=== PATIENT | female | born 1985 | race Two or more races ===

== ENCOUNTER 2018-08-19 08:40 | Emergency (ER) | payer MEDICAID ==
[~2018-08-19] VITALS: Ht 167.6 cm; Wt 102.1 kg
--- NOTE | 2018-08-19 08:45 | NUR ---
BIBRA 89 from home c/o laceration to chin and facial pain s/p syncopal episode while taking a shower, YD=820. Patient a/ox4, no distress noted. breathing even and unlabored. 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
[2018-08-19] MEDS ORDERED: ONDANSETRON HCL/PF 4 MG/2 ML VIAL ONE ×2 (08:59→10:29)
[2018-08-19] MEDS ORDERED: ONDANSETRON HCL/PF - ER 4 MG/2 ML VIAL IV ONE ×2 (09:00→10:30)
[2018-08-19 09:04] LABS: BASOPHILS % (AUTO) 0.4 % (0.0-2.0); EOSINOPHILS % (AUTO) 1.5 % (0.0-6.0); HEMATOCRIT 32 % (33-45); HEMOGLOBIN 9.8 g/dL (11.5-14.8); LYMPHOCYTES # (AUTO) 2.2 /CMM (0.8-4.8); LYMPHOCYTES % (AUTO) 33.8 % (20.0-44.0); MEAN CORPUSCULAR HGB CONC 31 g/dl (31.0-36.0); MEAN CORPUSCULAR VOLUME 66 fL (82-100); MONOCYTES # (AUTO) 0.5 /CMM (0.1-1.30); MONOCYTES % (AUTO) 7.1 % (2.0-12.0); NEUTROPHILS # (AUTO) 3.8 /CMM (1.8-8.9); NEUTROPHILS % (AUTO) 57.2 % (43.0-81.0); PLATELET COUNT (AUTO) 324 /CMM (150-450); RED BLOOD CELL COUNT(AUTO) 4.82 MIL/uL (4.0-5.2); WHITE BLOOD COUNT (AUTO) 6.6 K/uL (4.3-11.0)
[2018-08-19 09:32] LABS: ALANINE AMINOTRANSFERASE 60 U/L (12-78); ALBUMIN 3.4 g/dL (3.4-5.0); ALKALINE PHOSPHATASE 134 U/L (46-116); ASPARTATE AMINOTRANSFERASE 48 U/L (15-37); BILIRUBIN,DIRECT 0.2 mg/dL (0.0-0.2); BILIRUBIN,TOTAL 0.9 mg/dL (0.2-1.0); CALCIUM, SERUM 8.6 mg/dL (8.5-10.1); CARBON DIOXIDE 26 mmol/L (21-32); CHLORIDE 103 mmol/L (98-107); CREATININE 0.6 mg/dL (0.6-1.3); GLUCOSE 141 mg/dL (74-106); LIPASE 79 U/L (73-393); SODIUM SERUM 137 mmol/L (136-145); UREA NITROGEN, BLOOD 9 mg/dL (7-18)
[2018-08-19 09:33] LABS: POTASSIUM 2.7 mmol/L (3.5-5.1)
[2018-08-19] MEDS ORDERED: POTASSIUM CL. PREMIX PERIPHER. 50 ML IV ONE (09:34)
[2018-08-19] MEDS ORDERED: POTASSIUM CL. PREMIX PERIPHER. 50 ML ONE (09:49)
[2018-08-19] MEDS ORDERED: POTASSIUM CHLORIDE 20 MEQ TAB.PRT.SR PO ONE ×2 (09:50→10:00)
[2018-08-19] MEDS ORDERED: IV NS 0.9% 1,000 ML BAG IV ONE (10:00)
[2018-08-19] MEDS ORDERED: LABETALOL HCL IV 100MG VIAL ONE (10:29)
[2018-08-19] MEDS ORDERED: LEVETIRACETAM (500MG) 500 MG in IV NS 0.9% 100 ML IV ONE (10:30)
[2018-08-19] MEDS ORDERED: LABETALOL 20 MG/4 ML VIAL IV ONE ×2 (10:30→11:00)
--- NOTE | 2018-08-19 10:30 | NUR ---
PATIENT A/OX3, VERBALLY RESPONSIVE, NO CHANGE IN LOC. PATIENT ABLE TO USE BEDPAN. ABLE TO MOVE ALL EXTREMITIES. NO DISTRESS NOTED. WILL CONTINUE TO MONITOR.
--- NOTE | 2018-08-19 10:48 | NUR ---
CALL BACK FROM [facility], [facility] ETA [id number], DR MANCILLA AWARE
[2018-08-19 11:03] VITALS: BP 170/102
--- NOTE | 2018-08-19 11:04 | NUR ---
CALL BACK FROM [facility], GOING TO ROOM 0625, REPORT TO BE CALLED AT [phone]
--- NOTE | 2018-08-19 11:10 | NUR ---
ATTEMPTED TO CALL REPORT, EMMA CALABRESE NOT AVAILABLE, WILL CALL BACK
--- NOTE | 2018-08-19 11:18 | NUR ---
REPORT GIVEN TO LICHA CALABRESE. [facility] CAME AND REPORT GIVEN TO KRANTHI CALABRESE. PATIENT A/OX3-4, VERBALLY RESPONSIVE, NO CHANGE IN LOC. ON ROOM AIR WITH SPO2 OF 98%. NO DISTRESS NOTED. PATIENT TRANSFERRED TO [facility] IN STABLE CONDITION.
== END 2018-08-19 11:23 | disposition short-term general hospital (02) ==
LOC: ER 08:43
DX: S02.5XXA Fracture of tooth (traumatic), initial encounter for closed fracture (principal); S01.81XA Laceration without foreign body of other part of head, initial encounter; S05.12XA Contusion of eyeball and orbital tissues, left eye, initial encounter; I60.9 Nontraumatic subarachnoid hemorrhage, unspecified; I10 Essential (primary) hypertension; R11.10 Vomiting, unspecified; E87.6 Hypokalemia; R51 Headache; Z98.890 Other specified postprocedural states; X58.XXXA Exposure to other specified factors, initial encounter; Y93.89 Activity, other specified; Y92.89 Other specified places as the place of occurrence of the external cause; Y99.8 Other external cause status
CPT/HCPCS: 36415; 70450; 70486; 72125; 80048; 80076; 83690; 84484; 84702; 85025; 85730; 93005; 96365; 96368; 96375; 96376; 99291; J1953; J2405 ×2; J3480; J3490 ×3; J7030 ×2; L0172

== ENCOUNTER 2018-08-26 10:51 | Emergency (ER) | payer MEDICAID ==
[~2018-08-26] VITALS: Ht 165.1 cm; Wt 96.6 kg
[2018-08-26] MEDS ORDERED: [UNRECOGNIZED DRUG - CODE] PO (11:20)
[2018-08-26] MEDS ORDERED: NIMO30CA5 PO (11:20)
[2018-08-26] MEDS ORDERED: HYDR-4384 PO (11:20)
[2018-08-26] MEDS ORDERED: LEVE250T2 PO (11:20)
[2018-08-26] MEDS ORDERED: DEXA4TAB2 PO (11:20)
--- NOTE | 2018-08-26 11:25 | NUR ---
DR LEDESMA AT BEDSIDE FOR EVAL.
[2018-08-26] MEDS ORDERED: MORPHINE SULFATE INJ 4 MG/ML DISP.SYRIN ONE (11:29)
[2018-08-26] MEDS ORDERED: MORPHINE SULFATE INJ 2 MG/ML DISP.SYRIN ONE (11:29)
[2018-08-26] MEDS ORDERED: MORPHINE SULFATE INJ 10 MG/ML DISP.SYRIN IM ONE (11:30)
--- NOTE | 2018-08-26 11:32 | NUR ---
PT TO RADIOLOGY FOR HEAD CT SCAN VIA [facility].
--- NOTE | 2018-08-26 12:36 | NUR ---
Patient discharged to home in stable condition. Written and verbal after care instructions given. Patient verbalizes understanding of instruction.IV removed. Catheter intact and site benign. Pressure and 4x4 applied to site. No bleeding noted.
[2018-08-26 12:37] VITALS: BP 135/84
== END 2018-08-26 12:38 | disposition home or self-care (01) ==
LOC: ER 10:53
DX: R51 Headache (principal); G89.18 Other acute postprocedural pain; Z98.890 Other specified postprocedural states; Z79.899 Other long term (current) drug therapy
CPT/HCPCS: 70450; 96372; 99284; J2270 ×2